=== PATIENT | male | born 1985 | race Caucasian/White ===

== ENCOUNTER 2018-07-10 17:14 | Emergency (ER) ==
[~2018-07-10] VITALS: Ht 182.9 cm; Wt 84.4 kg
--- NOTE | 2018-07-10 17:38 | NUR ---
+SI, TOOK 130 TABS OF 100 MG GABAPENTIN LAST NIGHT & THIS AM. C/O CP, SOB, DIZZINESS, ABD PAIN & N/V AT THIS TIME. PT IS CALM AND COOPERATIVE. IN GOWN AND ON MONITOR. STATES BEING ANXIOUS. SUICIDE PRECAUTIONS IMPLEMENTED. READY FOR EVAL.
--- NOTE | 2018-07-10 17:52 | NUR ---
URINE COLLECTED & SENT TO LAB.
[2018-07-10] MEDS ORDERED: IV NS 0.9% 1,000 ML BAG IV ONE (18:00)
[2018-07-10 18:06] LABS: BASOPHILS # (AUTO) 0.1 /CMM (0.0-0.2); BASOPHILS % (AUTO) 0.9 % (0.0-2.0); EOSINOPHILS % (AUTO) 2.7 % (0.0-6.0); HEMATOCRIT 44 % (39-51); HEMOGLOBIN 15.1 g/dL (13.5-17.5); LYMPHOCYTES # (AUTO) 2.2 /CMM (0.8-4.8); LYMPHOCYTES % (AUTO) 29.7 % (20.0-44.0); MEAN CORPUSCULAR HGB CONC 34 g/dl (31.0-36.0); MEAN CORPUSCULAR VOLUME 87 fL (80-96); MONOCYTES # (AUTO) 0.5 /CMM (0.1-1.30); MONOCYTES % (AUTO) 7.5 % (2.0-12.0); NEUTROPHILS # (AUTO) 4.3 /CMM (1.8-8.9); NEUTROPHILS % (AUTO) 59.2 % (43.0-81.0); PLATELET COUNT (AUTO) 204 /CMM (150-450); RED BLOOD CELL COUNT(AUTO) 5.03 MIL/uL (4.5-6.0); WHITE BLOOD COUNT (AUTO) 7.3 K/uL (4.3-11.0)
[2018-07-10 18:13] LABS: CALCIUM, SERUM 8.7 mg/dL (8.5-10.1); CARBON DIOXIDE 27 mmol/L (21-32); CHLORIDE 105 mmol/L (98-107); CREATININE 1.2 mg/dL (0.6-1.3); GLUCOSE 90 mg/dL (74-106); POTASSIUM 3.8 mmol/L (3.5-5.1); SODIUM SERUM 143 mmol/L (136-145); UREA NITROGEN, BLOOD 21 mg/dL (7-18)
[2018-07-10 18:19] LABS: ALANINE AMINOTRANSFERASE 46 U/L (12-78); ALCOHOL, BLOOD < 3 mg/dL (0-0); ALKALINE PHOSPHATASE 70 U/L (46-116); ASPARTATE AMINOTRANSFERASE 27 U/L (15-37); BILIRUBIN,TOTAL 0.2 mg/dL (0.2-1.0); SALICYLATE 3.4 mg/dL (2.8-20.0); TOTAL PROTEIN, SERUM 7.1 g/dL (6.4-8.2)
[2018-07-10] MEDS ORDERED: LORAZEPAM 1 MG TABLET ONE ×2 (18:19→20:31)
[2018-07-10 18:20] LABS: ACETAMINOPHEN < 2 ug/ml (10-30)
[2018-07-10] MEDS ORDERED: LORAZEPAM 1 MG TABLET PO ONE ×2 (18:30→20:30)
--- NOTE | 2018-07-10 18:56 | NUR ---
PROVIDED FOOD TRAY
--- NOTE | 2018-07-10 19:15 | NUR ---
SITTER AT BEDSIDE
[2018-07-10 19:48] VITALS: BP 121/73
--- NOTE | 2018-07-10 19:57 | NUR ---
SPOKE WITH INSTRUCTIONAL FACILITATORCHICA Addendum: 07/10/18 at 2018 by SANGITA AT [facility]
--- NOTE | 2018-07-10 20:17 | NUR ---
PT ACCEPTED TO [facility] UNDER CARE OF DR CLAY YANEZ [facility], ROOM 404B NURSE TO NURSE REPORT: [phone]
--- NOTE | 2018-07-10 20:25 | NUR ---
[facility] TO [facility] ETA [id number] TRIP [id number]
--- NOTE | 2018-07-10 21:01 | NUR ---
Patient is resting comfortably in bed with eyes closed. Easily aroused. VSS
--- NOTE | 2018-07-10 21:17 | NUR ---
IV removed. Catheter intact and site benign. Pressure and 4x4 applied to site. No bleeding noted.
--- NOTE | 2018-07-10 21:27 | NUR ---
REPORT GIVEN TO LINDA STEVEN FROM [facility], AND MEG FROM [facility].
--- NOTE | 2018-07-10 21:37 | NUR ---
PT TRANSPORTED TO [facility]
== END 2018-07-10 21:40 ==
LOC: ER 17:17
DX: T42.6X2A Poisoning by other antiepileptic and sedative-hypnotic drugs, intentional self-harm, initial encounter (principal); R45.851 Suicidal ideations; Y92.89 Other specified places as the place of occurrence of the external cause
CPT/HCPCS: 36415; 80048; 80076; 80305; 80307; 80329; 85025; 93005; 99285; G0480; J7030